=== PATIENT | male | born 1975 | race Caucasian/White ===

== ENCOUNTER 2025-01-16 17:35 | Emergency (ER) | payer BC, SELFPAY ==
[2025-01-16 17:38] VITALS: BP 112/74
[2025-01-16 18:10] VITALS: BP 133/90
[2025-01-16 18:23] VITALS: BMI 26.0
[2025-01-16 18:45] LABS: % Basophils 0.8 % (0-2); % Eosinophils 0.8 % (0-6); % Immature Granulocytes 0.2 % (0-0.5); % Lymphocytes 24.4 % (20.5-51.1); % Monocytes 7.3 % (1.7-9.3); % Neutrophils 66.5 % (42.2-75.2); Absolute Basophils 0.1 10^3/uL (0-0.2); Absolute Eosinophils 0.1 10^3/uL (0-0.7); Absolute Lymphocytes 1.5 10^3/uL (1.2-3.4); Absolute Monocytes 0.5 10^3/uL (0.1-0.6); Absolute Neutrophils 4.2 10^3/uL (1.4-6.5); Hematocrit 44.8 % (39.0-52.0); Hemoglobin 15.6 g/dL (13.0-18.0); Mean Corp Hgb Conc. 34.8 g/dL (33.0-37.0); Mean Corpuscular Hgb 32.1 pg (27.0-31.0); Mean Corpuscular Volume 92.2 fL (80.0-94.0); Nucleated Red Blood Cells % 0 % (-); Platelet Count 312 10^3/uL (130-400); Red Blood Cell Count 4.86 10^6/uL (4.70-6.10); Red Cell Dist. Width 12.4 % (11.5-14.5); White Blood Cell Count 6.3 10^3/uL (4.8-10.8)
[2025-01-16 18:50] VITALS: BP 114/82
[2025-01-16 18:56] LABS: ALT (SGPT) 19 U/L (0-50); AST (SGOT) 22 U/L (17-59); Albumin 4.6 g/dl (3.5-5.0); Alkaline Phosphatase 60 U/L (38-126); Blood Urea Nitrogen 17 mg/dl (9-20); Calcium 10.3 mg/dl (8.4-10.2); Carbon Dioxide 30 mmol/L (22-30); Chloride 103 mmol/L (98-107); Estimated Creatinine Clearance 104 ml/min; Glucose 111 mg/dl (70-99); Potassium 4.2 mmol/L (3.5-5.1); Sodium 142 mmol/L (135-145); Total Bilirubin 0.7 mg/dl (0.2-1.3); Total Protein 7.4 g/dl (6.3-8.2); eGFR > 60.00
[2025-01-16 19:00] VITALS: BP 115/81
[2025-01-16 19:08] LABS: Troponin I < 0.012 ng/ml
[2025-01-16 20:00] VITALS: BP 113/85
[2025-01-16 21:01] LABS: Troponin I < 0.012 ng/ml
--- NOTE | 2025-01-16 21:07 | ED.GENMED ---
History of Present Illness
General
Chief Complaint: Cardiac Symptoms
Source: patient
Exam Limitations: none
Time Seen by Provider: 01/16/25 18:14
Nursing documentation reviewed up to this point in time: agreed with
History of Present Illness
History of Present Illness:
Patient states at approx 5PM tonight he had an episode of palpitations that lasted approx 15 minutes. States he developed tunnel vision and worsening ringing in ears. He had a brief episode of palpitations last PM but it lasted for a few seconds
and resolved. Brought to ED by spouse for eval.
Past History
Past History
ED Past Medical History: GERD and Psychiatric (anxiety/depression)
Review of Systems
Review of Systems
Allergies reviewed?: Yes
All Other Systems: ROS reviewed and negative except as documented in HPI and ROS
Constitutional: Reports no symptoms
EENT: Reports other (tunnel vision, ringing in ears)
Respiratory: Reports no symptoms
Cardiac: Reports palpitations
ABD/GI: Reports no symptoms
: Reports no symptoms
Musculoskeletal: Reports no symptoms
Skin: Reports no symptoms
Neurological: Reports no symptoms
Psychiatric: Reports no symptoms
Phy Exam
General Physical Exam
General Presentation: well appearing and no apparent distress
General age: appears stated age
General Skin: warm and dry
General Habitus: normal
Cardiovascular Exam
Cardiovascular Exam: regular rate/rhythm and no edema
Pulmonary Exam
Pulmonary Exam: lungs clear and no respiratory distress
Musculoskeletal Exam
Musculoskeletal Exam: full ROM and neuro vasc intact
Skin Exam
Skin Exam: normal color, warm/dry and no rash
Psychiatric Exam
Psychiatric Exam: normal mood/affect
Course
Orders/Labs/Results
Orders:
Orders
01/16/25 17:36
EKG [Electrocardiogram (*1)] Urgent
Reason for Study: Palpitations
EKG- Treatment ONCE
01/16/25 18:22
CXR2 [CR Chest - 2 Views ] Urgent
Comment:
Reason For Exam: cp
01/16/25 18:32
Complete Blood Count/With Diff Urgent
Comprehensive Metabolic Panel Urgent
Troponin I Urgent
01/16/25 20:09
Troponin I Urgent
Abnormal Lab Results
01/16/25
18:32
MCH 32.1 H pg
(27.0-31.0)
Glucose 111 H mg/dl
(70-99)
Calcium 10.3 H mg/dl
(8.4-10.2)
01/16/25 18:32
01/16/25 18:32
Vital Signs
Initial and Last Documented VS:
Initial Vital Signs
Temp Pulse Resp BP Pulse Ox
98.2 F 111 20 112/74 98
01/16/25 17:38 01/16/25 17:38 01/16/25 17:38 01/16/25 17:38 01/16/25 17:38
Last Documented Vital Signs
Temp Pulse Resp BP Pulse Ox
98.2 F 76 22 113/85 98
01/16/25 17:38 01/16/25 20:15 01/16/25 20:15 01/16/25 20:00 01/16/25 20:23
*Pulse Oximetry
Patient hypoxic: no
*EKG
Interpretation: normal
Rate: normal
Rhythm: sinus
*Critical Care Note
Total Time (30-74mins, 75-104mins- exclusive of procedures): Not Applicable
Update Note
Update Note:
Patient to ED after an episode of palpitations tonight with associated tunnel vision and ringing in hears. He has remained asymptomatic in ED. Labs, EKG reviewed. No concerning findings. Troponin neg x2. He will be dischargd home and he iwll
followup in AM with PCP. Recommend increasing fluid intake, decreasing caffeine (currently at 5cups coffee/daily)
ED Attending Note
-
Portions of this chart may have been created with voice recognition software.� Occasional wrong word or��sound alike� substitutions may have occurred due to the inherent limitations of voice recognition software.
Discharge Plan
Departure
Patient Disposition: Home (Routine Discharge)
Date of Disposition: 01/16/25
Time of Disposition: 21:06
Patient with high blood pressure during this ER visit?: No
Condition: Good
Covid-19: Not Applicable
Discharge Problem:
Palpitations
Instructions: Palpitations - ED discharge instructions
Prescriptions:
No Action
citalopram 40 mg Tablet
40 mg PO DAILY
omeprazole magnesium [Prilosec OTC] 20 mg Tablet,Delayed Release (Dr/Ec)
20 mg PO DAILY
Referrals:
Kylee Wallis CRNP [Family Provider] - Follow up in 2-3 days
Activity Restrictions/Additional Instructions:
Return to the emergency department immediately for any changes in/worsening of your symptoms.
Interventions
Interventions:
*Risk Screen - Suicide Last Done: 01/16/25 17:38
*General Assessment Last Done: 01/16/25 18:24
*Neglect/Abuse Screening Last Done: 01/16/25 17:38
*ED- Fall Risk Assessment Last Done: 01/16/25 18:24
*ED COVID-19 Vaccine History Last Done: 01/16/25 18:24
ED- Cardiac Assessment Last Done: 01/16/25 18:24
ED- Pulmonary Assessment Last Done: 01/16/25 18:24
Discharge Date and Time
Print Language: INDONESIAN
[2025-01-16 21:16] VITALS: BP 121/87
== END 2025-01-16 21:19 | disposition home or self-care (01) ==
LOC: EMR 17:35
PROVIDERS: Nurse Practitioner; EMERGENCY PHYSICIAN Emergency Medicine; FAMILY PHYSICIAN Nurse Practitioner Family
DX: R00.2 Palpitations (principal); H93.13 Tinnitus, bilateral; H53.8 Other visual disturbances
CPT/HCPCS: 99285; 71046; 80053; 84484; 85025; 93005